=== PATIENT | female | born 1995 | race Caucasian/White ===

== ENCOUNTER → 2021-01-26 | Outpatient (CLI) | payer SELFPAY ==
--- NOTE | 2021-01-26 18:54 | Diagnostic Imaging Report ---
EXAMINATION: Left fingers 2 or more views HISTORY: Trauma COMPARISON: None available. FINDINGS: Alignment is normal. No fracture is seen. Joint spaces are normal. IMPRESSION: 1. No fracture. Dictated by: Dictated on workstation # [id number]
== END ==
LOC: RAD 18:10
PROVIDERS: ATTEND Nurse Practitioner Family
DX: S69.91XA Unspecified injury of right wrist, hand and finger(s), initial encounter (principal); X58.XXXA Exposure to other specified factors, initial encounter
CPT/HCPCS: 73140

== ENCOUNTER 2022-01-25 21:00 | Emergency (ER) | payer MEDICAID ==
[~2022-01-25] VITALS: Ht 170.2 cm; Wt 108.9 kg
[2022-01-25] MEDS ORDERED: ONDANSETRON 4 MG (ZOFRAN) ORAL DISSOLVE TAB PO ONE (22:00)
[2022-01-25] MEDS ORDERED: FLUC150T PO (22:02)
[2022-01-25] MEDS ORDERED: ONDA8TAB13 PO (22:02)
[2022-01-25] MEDS ORDERED: AMOX1TAB12 PO (22:02)
--- NOTE | 2022-01-25 22:02 | ED General ---
General Chief Complaint: COVID19 Suspect/Confirmed Stated Complaint: BODY ACHES,NAUSEA, Nursing Triage Note: PT AMBULATORY TO ROOM. PT STATES FOR 3 DAYS SHE HAS HAD NAUSEA AND BODY ACHES THAT WORSENED TODAY. PT STATES SHE HAD COVID IN JUNE AND SHE FEELS THE SAME. PT STATES SHE WAS ALSO EXPOSED TO SOMEONE WHO HAD COVID THE DAY BEFORE HER SYMPTOMS STARTED. Source of Information: Patient Exam Limitations: No Limitations (GEORGE HENNING APRN) History of Present Illness Date Seen by Provider: Jan 25, 2022 Time Seen by Provider: 21:59 Initial Comments To ER with a 3-day history of nausea body aches sore throat and headache. No fevers. She had COVID in June and this feels the same. Timing/Duration: 2-3 Days Severity: Moderate Associated Systoms: Headaches, Nausea/Vomiting (GEORGE HENNING APRN) Allergies and Home Medications Allergies Coded Allergies: No Known Drug Allergies (Unverified , 01/25/22) Patient Home Medication List Home Medication List Reviewed: Yes (GEORGE HENNING APRN) Amoxicillin/Potassium Clav (Amox Tr-K Clv 875-125 mg Tab) 875 Mg-125 Mg Tablet, 1 EACH PO BID Prescribed by: GEORGE HENNING on 01/25/222201 Fluconazole (Diflucan) 150 Mg Tablet, 150 MG PO DAILY Prescribed by: GEORGE HENNING on 01/25/222201 Ondansetron (Ondansetron Odt) 8 Mg Tab.rapdis, 8 MG PO Q6H PRN for NAUSEA/VOMITING Prescribed by: GEORGE HENNING on 01/25/222201 Review of Systems Review of Systems Constitutional: see HPI, weakness EENTM: see HPI Respiratory: no symptoms reported Cardiovascular: no symptoms reported Genitourinary: no symptoms reported Musculoskeletal: no symptoms reported Skin: no symptoms reported Psychiatric/Neurological: See HPI, Headache Hematologic/Lymphatic: No Symptoms Reported (GEORGE HENNING APRN) Physical Exam Vital Signs Vital Signs - First Documented 01/25/22 21:15 Temp 37.7 Pulse 84 Resp 20 B/P (MAP) 133/90 (104) Pulse Ox 99 (JEAN-CLAUDE GONZALEZ MD) Vital Signs Capillary Refill : (GEORGE HENNING APRN) Height, Weight, BMI Height: '" Weight: lbs. oz. kg; 37.00 BMI Method: General Appearance: No Apparent Distress, WD/WN, Other (Well-appearing alert and oriented GCS 15 very pleasant vital stable) Eyes: Bilateral Eye Normal Inspection, Bilateral Eye PERRL HEENT: PERRL/EOMI, TMs Normal, Other (Right tympanic membrane slightly erythematous by comparison to the left no bulging) Neck: Full Range of Motion, Normal Inspection Respiratory: No Accessory Muscle Use, No Respiratory Distress Gastrointestinal: Normal Bowel Sounds, Non Tender, Soft Neurologic/Psychiatric: Alert, Oriented x3 Skin: Normal Color, Warm/Dry (GEORGE HENNING APRN) Progress/Results/Core Measures Suspected Sepsis SIRS Temperature: Pulse: 84 Respiratory Rate: 20 Laboratory Tests 01/25/22 22:06: White Blood Count 10.3 Blood Pressure 133 /90 Mean: 104 Laboratory Tests 01/25/22 22:06: Creatinine 0.83, Platelet Count 353 (GEORGE HENNING APRN) Results/Orders Lab Results Laboratory Tests Test 01/25/22 21:21 01/25/22 22:03 01/25/22 22:06 Range/Units Influenza Type A (RT-PCR) Not Detected Not Detecte Influenza Type B (RT-PCR) Not Detected Not Detecte SARS-CoV-2 RNA (RT-PCR) Not Detected Not Detecte Urine Color YELLOW Urine Clarity CLEAR Urine pH 5.5 5-9 Urine Specific [place] 1.025 H 1.016-1.022 Urine Protein NEGATIVE NEGATIVE Urine Glucose (UA) NEGATIVE NEGATIVE Urine Ketones NEGATIVE NEGATIVE Urine Nitrite NEGATIVE NEGATIVE Urine Bilirubin NEGATIVE NEGATIVE Urine Urobilinogen 0.2 < = 1.0 MG/DL Urine Leukocyte Esterase NEGATIVE NEGATIVE Urine RBC (Auto) NEGATIVE NEGATIVE Urine RBC NONE /HPF Urine WBC 0-2 /HPF Urine Squamous Epithelial Cells 0-2 /HPF Urine Renal Epithelial Cells NONE /HPF Urine Crystals NONE /LPF Urine Bacteria TRACE /HPF Urine Casts NONE /LPF Urine Mucus MODERATE H /LPF Urine Culture Indicated NO White Blood Count 10.3 4.3-11.0 10^3/uL Red Blood Count 4.81 3.80-5.11 10^6/uL Hemoglobin 13.9 11.5-16.0 g/dL Hematocrit 41 35-52 % Mean Corpuscular Volume 86 80-99 fL Mean Corpuscular Hemoglobin 29 25-34 pg Mean Corpuscular Hemoglobin Concent 34 32-36 g/dL Red Cell Distribution Width 12.3 10.0-14.5 % Platelet Count 353 130-400 10^3/uL Mean Platelet Volume 9.9 9.0-12.2 fL Immature Granulocyte % (Auto) 0 % Neutrophils (%) (Auto) 54 42-75 % Lymphocytes (%) (Auto) 37 12-44 % Monocytes (%) (Auto) 4 0-12 % Eosinophils (%) (Auto) 4 0-10 % Basophils (%) (Auto) 1 0-10 % Neutrophils # (Auto) 5.6 1.8-7.8 10^3/uL Lymphocytes # (Auto) 3.8 1.0-4.0 10^3/uL Monocytes # (Auto) 0.4 0.0-1.0 10^3/uL Eosinophils # (Auto) 0.4 H 0.0-0.3 10^3/uL Basophils # (Auto) 0.1 0.0-0.1 10^3/uL Immature Granulocyte # (Auto) 0.0 0.0-0.1 10^3/uL Sodium Level 136 135-145 MMOL/L Potassium Level 4.0 3.6-5.0 MMOL/L Chloride Level 103 98-107 MMOL/L Carbon Dioxide Level 20 L 21-32 MMOL/L Anion Gap 13 5-14 MMOL/L Blood Urea Nitrogen 9 7-18 MG/DL Creatinine 0.83 0.60-1.30 MG/DL Estimat Glomerular Filtration Rate 100 BUN/Creatinine Ratio 11 Glucose Level 96 70-105 MG/DL Calcium Level 9.7 8.5-10.1 MG/DL Serum Test, Qualitative NEGATIVE NEGATIVE (JEAN-CLAUDE GONZALEZ MD) My Orders Orders - JEAN-CLAUDE GONZALEZ MD Covid 19 Inhouse Test (01/25/22 21:06) Influenza A And B By Pcr (01/25/22 21:06) (JEAN-CLAUDE GONZALEZ MD) Medications Given in ED Current Medications Medications Dose Ordered Sig/Gail Route Start Time Stop Time Status Last Admin Dose Admin Ondansetron HCl 8 mg ONCE ONCE PO 01/25/22 22:00 01/25/22 22:01 DC 01/25/22 22:17 8 MG (JEAN-CLAUDE GONZALEZ MD) Vital Signs/I&O 01/25/22 01/25/22 21:15 22:43 Temp 37.7 Pulse 84 73 Resp 20 B/P (MAP) 133/90 (104) 128/83 Pulse Ox 99 97 (JEAN-CLAUDE GONZALEZ MD) Vital Signs/I&O Capillary Refill : (GEORGE HENNING APRN) Blood Pressure Mean: 104 Departure Impression Primary Impression: Viral syndrome Additional Impression: Right otitis media Disposition: HOME, SELF-CARE Condition: Stable Departure-Patient Inst. Decision time for Depature: 22:00 (GEORGE HENNING APRN) Ref[place] [facility] [place] Primary Care Physician Patient Instructions: Viral Syndrome (DC) Add. Discharge Instructions: 1. Take the antibiotics for the right ear infection if the symptoms do not improve on their own in about 2 days. If they do improve then you do not need the antibiotics. Return to ER for any concerns. Follow-up with your doctor next week. Tylenol and ibuprofen for fever control or body aches. Nausea medication as needed. All discharge instructions reviewed with patient and/or family. Voiced understanding. Scripts Fluconazole (Diflucan) 150 Mg Tablet 150 MG PO DAILY, #2 TAB Prov: GEORGE HENNING APRN 01/25/22 Amoxicillin/Potassium Clav (Amox Tr-K Clv 875-125 mg Tab) 875 Mg-125 Mg Tablet 1 EACH PO BID, #10 TAB Prov: GEORGE HENNING APRN 01/25/22 Ondansetron (Ondansetron Odt) 8 Mg Tab.rapdis 8 MG PO Q6H PRN for NAUSEA/VOMITING, #10 TAB Prov: GEORGE HENNING APRN 01/25/22 Work/School Note: Work Release Form Date Seen in the Emergency Department: Jan 25, 2022 Return to Work: Jan 28, 2022 ATTENDING PHYSICIAN NOTE: I was physically present as attending physician in the emergency department during the care of this patient, but I was not directly involved in the decision making or delivery of care for this patient. (JEAN-CLAUDE GONZALEZ MD) GEORGE HENNING APRN Jan 25, 2022 22:02 JEAN-CLAUDE GONZALEZ MD Jan 26, 2022 04:02
[2022-01-25 22:13] LABS: BASOPHILS # (AUTO) 0.1 10^3/uL (0.0-0.1); BASOPHILS % (AUTO) 1 % (0-10); EOSINOPHILS # (AUTO) 0.4 10^3/uL (0.0-0.3); EOSINOPHILS % (AUTO) 4 % (0-10); HEMATOCRIT 41 % (35-52); HEMOGLOBIN 13.9 g/dL (11.5-16.0); LYMPHOCYTES # (AUTO) 3.8 10^3/uL (1.0-4.0); LYMPHOCYTES % (AUTO) 37 % (12-44); MEAN CORPUSCULAR HEMOGLOBIN 29 pg (25-34); MEAN CORPUSCULAR HGB CONC 34 g/dL (32-36); MEAN CORPUSCULAR VOLUME 86 fL (80-99); MEAN PLATELET VOLUME 9.9 fL (9.0-12.2); MONOCYTES # (AUTO) 0.4 10^3/uL (0.0-1.0); MONOCYTES % (AUTO) 4 % (0-12); NEUTROPHILS # (AUTO) 5.6 10^3/uL (1.8-7.8); NEUTROPHILS % (AUTO) 54 % (42-75); PLATELET COUNT 353 10^3/uL (130-400); WHITE BLOOD COUNT 10.3 10^3/uL (4.3-11.0)
[2022-01-25 22:14] LABS: BILIRUBIN,URINE NEGATIVE (NEGATIVE); CLARITY,URINE CLEAR; COLOR,URINE YELLOW; GLUCOSE, URINE (UA) NEGATIVE (NEGATIVE); KETONES,URINE NEGATIVE (NEGATIVE); LEUKOCYTE ESTERASE ,URINE NEGATIVE (NEGATIVE); NITRITE,URINE NEGATIVE (NEGATIVE); PH,URINE 5.5 (5-9); PROTEIN,URINE NEGATIVE (NEGATIVE)
[2022-01-25 22:23] LABS: BACTERIA,URINE TRACE /HPF; SQUAMOUS EPITHELIAL CELL,UR 0-2 /HPF; WBC,URINE 0-2 /HPF
[2022-01-25 22:25] LABS: CALCIUM 9.7 MG/DL (8.5-10.1)
[2022-01-25 22:29] LABS: CREATININE SERUM 0.83 MG/DL (0.60-1.30)
[2022-01-25 22:43] VITALS: BP 128/83
== END 2022-01-25 22:43 | disposition home or self-care (01) ==
LOC: EDUNIT# 21:00 → ER 21:04
DX: B34.9 Viral infection, unspecified (principal); H66.91 Otitis media, unspecified, right ear; Z86.16 Personal history of COVID-19; Z28.310 Unvaccinated for COVID-19; Z20.822 Contact with and (suspected) exposure to COVID-19
CPT/HCPCS: 36415; 80048; 81000; 84703; 85025; 87636

== ENCOUNTER 2022-02-14 23:54 | Emergency (ER) | payer MEDICAID ==
[~2022-02-14] VITALS: Ht 170.1 cm; Wt 108.7 kg
[~2022-02-14 23:54] MED LIST: AMOX1TAB12 PO; FLUC150T PO; ONDA8TAB13 PO
--- NOTE | 2022-02-15 00:50 | ED Headache ---
General Chief Complaint: Head/Cervical Problems Stated Complaint: MIGRAINE Nursing Triage Note: PT ARRIVAL TO ER WITH COMPLAINT OF MIGRAINE X2 DAYS. PATIENT SEEN AT [facility] YESTERDAY AND TREATED FOR THIS. Source: patient Exam Limitations: no limitations History of Present Illness Date Seen by Provider: Feb 15, 2022 Time Seen by Provider: 00:28 Initial Comments Patient to the ER by private conveyance from home with chief complaint of migraine headache. She has a history of migraine headaches. She is not having any nausea fevers chills productive cough, shortness of air, chest pain, diarrhea, constipation or sick contacts. She went to the clinic yesterday and was given a shot of medicine which made her drowsy. Her headache went away but when she got up this morning her headache was back. She did take some medicines for mood stabilizer and depression. She is followed by Karen France at [facility] for primary care. She did take Tylenol and Motrin without significant relief of symptoms earlier tonight. Allergies and Home Medications Allergies Coded Allergies: No Known Drug Allergies (Unverified , 01/25/22) Patient Home Medication List Home Medication List Reviewed: Yes Amoxicillin/Potassium Clav (Amox Tr-K Clv 875-125 mg Tab) 875 Mg-125 Mg Tablet, 1 EACH PO BID Prescribed by: GEORGE HENNING on 01/25/222201 Fluconazole (Diflucan) 150 Mg Tablet, 150 MG PO DAILY Prescribed by: GEORGE HENNING on 01/25/222201 Ondansetron (Ondansetron Odt) 8 Mg Tab.rapdis, 8 MG PO Q6H PRN for NAUSEA/VOMITING Prescribed by: GEORGE HENNING on 01/25/222201 Review of Systems Review of Systems Constitutional: No chills, No diaphoresis Eyes: Denies Blindness, Denies Blurred Vision Ears, Nose, Mouth, Throat: denies ear pain, denies ear discharge Respiratory: No cough, No short of breath Cardiovascular: No chest pain, No edema Gastrointestinal: No abdominal pain, No nausea Genitourinary: No discharge, No dysuria Musculoskeletal: No back pain, No joint pain All Other Systems Reviewed Negative Unless Noted: Yes Past Kmtqddb-Dwmhuw-Xdzgng Hx Patient Social History Tobacco Use?: No Use of E-Cig and/or Vaping dev: No Substance use?: No Alcohol Use?: No Pt feels they are or have been: No Immunizations Up To Date Influenza Vaccine Up-to-Date: No; Not Current Physical Exam Vital Signs Vital Signs - First Documented 02/15/22 00:16 Temp 36.2 Pulse 74 Resp 18 B/P (MAP) 144/94 (111) Pulse Ox 99 O2 Delivery Room Air Capillary Refill : Less Than 3 Seconds Height, Weight, BMI Height: '" Weight: lbs. oz. kg; 37.00 BMI Method: General Appearance: WD/WN, mild distress HEENT: PERRL/EOMI, pharynx normal Neck: full range of motion, supple, normal inspection Cardiovascular: normal peripheral pulses, regular rate, rhythm Respiratory: lungs clear, normal breath sounds, no respiratory distress, no accessory muscle use Gastrointestinal: non tender, soft Extremities: non-tender, normal inspection, normal capillary refill Psychiatric: alert, oriented x 3 Crainal Nerves: normal hearing, normal speech Progress/Results/Core Measures Results/Orders My Orders Orders - ISAIAH CHEN Acetaminophen Tablet (Tylenol Tablet) (02/15/22 01:00) Promethazine Injection (Phenergan Injec (02/15/22 01:00) Diphenhydramine Tablet (Benadryl Tablet) (02/15/22 01:00) Ketorolac Injection (Toradol Injection) (02/15/22 01:00) Methylprednisolone Sod Succ (Solu-Medrol (02/15/22 01:00) Medications Given in ED Current Medications Medications Dose Ordered Sig/Gail Route Start Time Stop Time Status Last Admin Dose Admin Acetaminophen 1,000 mg ONCE ONCE PO 02/15/22 01:00 02/15/22 01:01 DC 02/15/22 00:57 1,000 MG Diphenhydramine HCl 50 mg ONCE ONCE PO 02/15/22 01:00 02/15/22 01:01 DC 02/15/22 00:57 50 MG Ketorolac Tromethamine 60 mg ONCE ONCE IM 02/15/22 01:00 02/15/22 01:01 DC 02/15/22 00:59 60 MG Methylprednisolone Sodium Succinate 125 mg ONCE ONCE IM 02/15/22 01:00 02/15/22 01:01 DC 02/15/22 00:59 125 MG Promethazine HCl 25 mg ONCE ONCE IM 02/15/22 01:00 02/15/22 01:01 DC 02/15/22 00:58 25 MG Vital Signs/I&O 02/15/22 02/15/22 00:16 01:07 Temp 36.2 Pulse 74 79 Resp 18 18 B/P (MAP) 144/94 (111) 143/98 Pulse Ox 99 99 O2 Delivery Room Air Room Air Blood Pressure Mean: 111 Progress Progress Note : Time: 00:47 Progress Note We will give her a cocktail of Phenergan PO, Toradol IM, Solu-Medrol IM to prevent rebound headache and p.o. Benadryl and Tylenol. Patient was offered a test which she declined stating she is not sexually active and has no chance of being . She states she is willing to assume the risk. Departure Impression Primary Impression: Migraine Qualified Codes: G43.009 - Migraine without aura, not intractable, without status migrainosus Disposition: HOME, SELF-CARE Condition: Stable Departure-Patient Inst. Decision time for Depature: 00:49 Referrals: [facility] [place]) Primary Care Physician KAREN FRANCE APRN (Family) Primary Care Physician Patient Instructions: Migraines (DC) Add. Discharge Instructions: Tylenol 1000 mg every 8 hours needed for pain. Ibuprofen 800 mg every 8 hours needed for pain. Get some sleep. Follow-up with your primary care provider to discuss your migraines and strategies to prevent and/or treat them at home. All discharge instructions reviewed with patient and/or family. Voiced understanding. Work/School Note: Work Release Form Date Seen in the Emergency Department: Feb 15, 2022 Return to Work: Feb 16, 2022 Restrictions: No Restrictions ISAIAH CHEN Feb 15, 2022 00:50
[2022-02-15] MEDS ORDERED: KETOROLAC 60 MG/2 ML VIAL IM ONE (01:00)
[2022-02-15] MEDS ORDERED: ACETAMINOPHEN 500 MG TAB (TYLENOL) PO ONE (01:00)
[2022-02-15] MEDS ORDERED: PROMETHAZINE INJ 25 MG/ML (PHENERGAN) AMP IM ONE (01:00)
[2022-02-15] MEDS ORDERED: methylPREDNISolone 125 MG (Solu-MEDROL) VIAL IM ONE (01:00)
[2022-02-15] MEDS ORDERED: diphenhydrAMINE 25 MG TAB (BENADRYL) PO ONE (01:00)
[2022-02-15 01:07] VITALS: BP 143/98
== END 2022-02-15 01:21 | disposition home or self-care (01) ==
LOC: EDUNIT# 23:54 → ER 23:57
DX: G43.909 Migraine, unspecified, not intractable, without status migrainosus (principal); Z28.310 Unvaccinated for COVID-19
CPT/HCPCS: 99284

== ENCOUNTER 2022-03-02 21:24 | Emergency (ER) | payer MEDICAID ==
--- NOTE | 2022-03-02 21:52 | ED General ---
General Chief Complaint: Chest Wall Stated Complaint: CHEST TIGHTNESS Nursing Triage Note: ARRIVAL TO ER VIA PRIVATE VEHICLE WITH COMPLAINT OF CHEST TIGHTNESS X1 HOUR. RATES PAIN AT 7/10. DENIES OTHER SYMPTOMS. WAS SITTING WATCHING TV WHEN STARTED. PAIN IS INTERMITTENT. Source of Information: Patient Exam Limitations: No Limitations History of Present Illness Date Seen by Provider: Mar 02, 2022 Allergies and Home Medications Allergies Coded Allergies: No Known Drug Allergies (Unverified , 01/25/22) Patient Home Medication List Amoxicillin/Potassium Clav (Amox Tr-K Clv 875-125 mg Tab) 875 Mg-125 Mg Tablet, 1 EACH PO BID Prescribed by: GEORGE HENNING on 01/25/222201 Fluconazole (Diflucan) 150 Mg Tablet, 150 MG PO DAILY Prescribed by: GEORGE HENNING on 01/25/222201 Ondansetron (Ondansetron Odt) 8 Mg Tab.rapdis, 8 MG PO Q6H PRN for NAUSEA /VOMITING Prescribed by: GEORGE HENNING on 01/25/222201 Past Qwnukgz-Hnfmoi-Gercrc Hx Patient Social History Tobacco Use?: No Use of E-Cig and/or Vaping dev: No Substance use?: No Alcohol Use?: No Pt feels they are or have been: No Immunizations Up To Date Influenza Vaccine Up-to-Date: No; Not Current Physical Exam Vital Signs Vital Signs - First Documented 03/02/22 21:28 Pulse 104 Resp 18 B/P (MAP) 137/97 (110) Pulse Ox 99 O2 Delivery Room Air Capillary Refill : Less Than 3 Seconds Height, Weight, BMI Height: '" Weight: lbs. oz. kg; 37.00 BMI Method: Progress/Results/Core Measures Suspected Sepsis SIRS Temperature: Pulse: 104 Respiratory Rate: 18 Laboratory Tests 03/02/22 21:40: White Blood Count 13.5H Blood Pressure 137 /97 Mean: 110 Laboratory Tests 03/02/22 21:40: Creatinine 0.84, Platelet Count 382, Total Bilirubin 0.3 Results/Orders Lab Results Laboratory Tests Test 03/02/22 21:40 03/02/22 21:42 03/02/22 21:50 03/02/22 21:56 Range/Units White Blood Count 13.5 H 4.3-11.0 10^3/uL Red Blood Count 4.86 3.80-5.11 10^6/uL Hemoglobin 14.3 11.5-16.0 g/dL Hematocrit 42 35-52 % Mean Corpuscular Volume 86 80-99 fL Mean Corpuscular Hemoglobin 29 25-34 pg Mean Corpuscular Hemoglobin Concent 34 32-36 g/dL Red Cell Distribution Width 12.2 10.0-14.5 % Platelet Count 382 130-400 10^3/uL Mean Platelet Volume 10.3 9.0-12.2 fL Immature Granulocyte % (Auto) 0 % Neutrophils (%) (Auto) 66 42-75 % Lymphocytes (%) (Auto) 24 12-44 % Monocytes (%) (Auto) 5 0-12 % Eosinophils (%) (Auto) 4 0-10 % Basophils (%) (Auto) 1 0-10 % Neutrophils # (Auto) 8.9 H 1.8-7.8 10^3/uL Lymphocytes # (Auto) 3.2 1.0-4.0 10^3/uL Monocytes # (Auto) 0.7 0.0-1.0 10^3/uL Eosinophils # (Auto) 0.6 H 0.0-0.3 10^3/uL Basophils # (Auto) 0.1 0.0-0.1 10^3/uL Immature Granulocyte # (Auto) 0.0 0.0-0.1 10^3/uL Sodium Level 138 135-145 MMOL/L Potassium Level 4.2 3.6-5.0 MMOL/L Chloride Level 103 98-107 MMOL/L Carbon Dioxide Level 21 21-32 MMOL/L Anion Gap 14 5-14 MMOL/L Blood Urea Nitrogen 10 7-18 MG/DL Creatinine 0.84 0.60-1.30 MG/DL Estimat Glomerular Filtration Rate 98 BUN/Creatinine Ratio 12 Glucose Level 101 70-105 MG/DL Calcium Level 9.8 8.5-10.1 MG/DL Corrected Calcium 9.5 8.5-10.1 MG/DL Total Bilirubin 0.3 0.1-1.0 MG/DL Aspartate Amino Transf (AST/SGOT) 36 H 5-34 U/L Alanine Aminotransferase (ALT/SGPT) 45 0-55 U/L Alkaline Phosphatase 75 40-136 U/L Troponin I < 0.028 <0.028 NG/ML Total Protein 8.5 H 6.4-8.2 GM/DL Albumin 4.4 3.2-4.5 GM/DL D-Dimer < 0.27 0.00-0.49 UG/ML Influenza Type A (RT-PCR) Not Detected Not Detecte Influenza Type B (RT-PCR) Not Detected Not Detecte SARS-CoV-2 RNA (RT-PCR) Not Detected Not Detecte Urine Color YELLOW Urine Clarity CLEAR Urine pH 6.5 5-9 Urine Specific [place] 1.025 H 1.016-1.022 Urine Protein NEGATIVE NEGATIVE Urine Glucose (UA) NEGATIVE NEGATIVE Urine Ketones NEGATIVE NEGATIVE Urine Nitrite NEGATIVE NEGATIVE Urine Bilirubin NEGATIVE NEGATIVE Urine Urobilinogen 1.0 < = 1.0 MG/DL Urine Leukocyte Esterase 1+ H NEGATIVE Urine RBC (Auto) NEGATIVE NEGATIVE Urine RBC NONE /HPF Urine WBC 2-5 /HPF Urine Squamous Epithelial Cells 0-2 /HPF Urine Renal Epithelial Cells NONE /HPF Urine Crystals NONE /LPF Urine Bacteria FEW H /HPF Urine Casts NONE /LPF Urine Mucus SMALL H /LPF Urine Culture Indicated YES My Orders Orders - MARY GE APRN Urinalysis (03/02/22 21:35) Urine Bedside (03/02/22 21:35) Cbc With Automated Diff (03/02/22 21:42) Comprehensive Metabolic Panel (03/02/22 21:42) Fibrin Degradation Products (03/02/22 21:42) Troponin I [place] (03/02/22 21:42) Chest 1 View, Ap/Pa Only (03/02/22 21:42) Covid 19 Inhouse Test (03/02/22 21:42) Influenza A And B By Pcr (03/02/22 21:42) Ed Iv/Invasive Line Start (03/02/22 21:59) Urine Culture (03/02/22 21:56) Vital Signs/I&O 03/02/22 21:28 Pulse 104 Resp 18 B/P (MAP) 137/97 (110) Pulse Ox 99 O2 Delivery Room Air Capillary Refill : Less Than 3 Seconds Blood Pressure Mean: 110 Departure Impression Primary Impression: Anxiety Disposition: 01 HOME, SELF-CARE Condition: Improved Departure-Patient Inst. Decision time for Depature: 22:48 Referrals: [facility] (PCP) Primary Care Physician KIM FRANCE APRN (Family) Primary Care Physician Patient Instructions: Anxiety, Adult (DC) Add. Discharge Instructions: Plan: 1. Follow up with your doctor for any persistent symptoms. 2. Return to ER for any new, concerning, or worsening symptoms. All discharge instructions reviewed with patient and/or family. Voiced understanding. MARY GE HAT BINDER Mar 02, 2022 21:51
[2022-03-02 21:53] LABS: BASOPHILS # (AUTO) 0.1 10^3/uL (0.0-0.1); BASOPHILS % (AUTO) 1 % (0-10); EOSINOPHILS # (AUTO) 0.6 10^3/uL (0.0-0.3); EOSINOPHILS % (AUTO) 4 % (0-10); HEMATOCRIT 42 % (35-52); HEMOGLOBIN 14.3 g/dL (11.5-16.0); LYMPHOCYTES # (AUTO) 3.2 10^3/uL (1.0-4.0); LYMPHOCYTES % (AUTO) 24 % (12-44); MEAN CORPUSCULAR HEMOGLOBIN 29 pg (25-34); MEAN CORPUSCULAR HGB CONC 34 g/dL (32-36); MEAN CORPUSCULAR VOLUME 86 fL (80-99); MEAN PLATELET VOLUME 10.3 fL (9.0-12.2); MONOCYTES # (AUTO) 0.7 10^3/uL (0.0-1.0); MONOCYTES % (AUTO) 5 % (0-12); NEUTROPHILS # (AUTO) 8.9 10^3/uL (1.8-7.8); NEUTROPHILS % (AUTO) 66 % (42-75); PLATELET COUNT 382 10^3/uL (130-400); WHITE BLOOD COUNT 13.5 10^3/uL (4.3-11.0)
[2022-03-02 22:02] LABS: BILIRUBIN,URINE NEGATIVE (NEGATIVE); CLARITY,URINE CLEAR; COLOR,URINE YELLOW; GLUCOSE, URINE (UA) NEGATIVE (NEGATIVE); KETONES,URINE NEGATIVE (NEGATIVE); LEUKOCYTE ESTERASE ,URINE 1+ (NEGATIVE); NITRITE,URINE NEGATIVE (NEGATIVE); PH,URINE 6.5 (5-9); PROTEIN,URINE NEGATIVE (NEGATIVE)
[2022-03-02 22:04] LABS: BACTERIA,URINE FEW /HPF; SQUAMOUS EPITHELIAL CELL,UR 0-2 /HPF
--- NOTE | 2022-03-02 22:04 | Diagnostic Imaging Report ---
PATIENT HISTORY: SOA. TECHNIQUE: Single frontal view of the chest. COMPARISON: None FINDINGS: The lung volumes are normal. No focal consolidation is seen. No large pleural effusion or pneumothorax is seen. The cardiomediastinal silhouette is normal in size and contour. No acute osseous abnormality is seen. IMPRESSION: No acute pulmonary abnormality seen. Dictated by: Dictated on workstation # [id number]
[2022-03-02 22:21] LABS: ALANINE AMINOTRANSFERASE 45 U/L (0-55); ALBUMIN 4.4 GM/DL (3.2-4.5); ALKALINE PHOSPHATASE 75 U/L (40-136); BILIRUBIN,TOTAL 0.3 MG/DL (0.1-1.0); BUN/CREATININE RATIO 12; CALCIUM 9.8 MG/DL (8.5-10.1); CARBON DIOXIDE 21 MMOL/L (21-32); CHLORIDE 103 MMOL/L (98-107); CREATININE SERUM 0.84 MG/DL (0.60-1.30); GFR ESTIMATED 98; GLUCOSE 101 MG/DL (70-105); POTASSIUM 4.2 MMOL/L (3.6-5.0); SODIUM 138 MMOL/L (135-145); TOTAL PROTEIN 8.5 GM/DL (6.4-8.2)
[2022-03-02 23:15] VITALS: BP 114/76
== END 2022-03-02 23:15 | disposition home or self-care (01) ==
LOC: EDUNIT# 21:24 → ER 21:25
DX: F41.9 Anxiety disorder, unspecified (principal); Z20.822 Contact with and (suspected) exposure to COVID-19; Z28.310 Unvaccinated for COVID-19
CPT/HCPCS: 36415; 71045; 80053; 81000; 84484; 84703; 85025; 85379; 87088; 87636; 93005

== ENCOUNTER 2022-05-13 07:50 | Emergency (ER) | payer MEDICAID ==
[~2022-05-13] VITALS: Ht 170 cm; Wt 108.8 kg
--- NOTE | 2022-05-13 08:25 | ED Respiratory ---
General Chief Complaint: Cough/Cold/Flu Symptoms Stated Complaint: CONGESTION | FEVER | COUGH History of Present Illness Date Seen by Provider: May 13, 2022 Time Seen by Provider: 07:58 Initial Comments 27 yo female here for sore throat since yesterday. Pt reports associated nonproductive cough, congestion in chest, and N/V/D. Pt states she has about 10 episodes of nonbloody diarrhea and vomiting. Woke up this morning with a temperature of 100.3. She was seen at walk-in clinic yesterday and tested negati ve for strep, RSV, covid, and flu. Pt is not vaccinated against flu and covid. She has not taken any medication for her sx. Denies any SOB, sinus pressure, AVALOS. No other complaints (ZOE IBANEZ) Allergies and Home Medications Allergies Coded Allergies: No Known Drug Allergies (Unverified , 01/25/22) Patient Home Medication List Home Medication List Reviewed: Yes (ZOE IBANEZ) Amoxicillin/Potassium Clav (Amox Tr-K Clv 875-125 mg Tab) 875 Mg-125 Mg Tablet, 1 EACH PO BID Prescribed by: GEORGE HENNING on 01/25/222201 Fluconazole (Diflucan) 150 Mg Tablet, 150 MG PO DAILY Prescribed by: GEORGE HENNING on 01/25/222201 Ondansetron (Ondansetron Odt) 8 Mg Tab.rapdis, 8 MG PO Q6H PRN for NAUSEA/VOMIT ING Prescribed by: GEORGE HENNING on 01/25/222201 Ondansetron (Ondansetron Odt) 4 Mg Tab.rapdis, 4 MG SL Q4H PRN for NAUSEA/VOMITING Prescribed by: JEAN-CLAUDE ROSENBERG on 05/13/221120 Promethazine HCl (Promethazine Suppository) 25 Mg Supp.rect, 25 MG RC Q8H PRN for NAUSEA/VOMITING-2ND LINE Prescribed by: JEAN-CLAUDE ROSENBERG on 05/13/221120 Review of Systems Review of Systems Constitutional: chills; No diaphoresis; fever; No malaise, No weakness EENTM: No ear discharge, No hearing loss, No ear pain, No nose congestion Respiratory: cough; No short of breath, No stridor, No wheezing Cardiovascular: No chest pain, No palpitations Gastrointestinal: No abdominal pain; diarrhea, nausea, vomiting Genitourinary: no symptoms reported Musculoskeletal: no symptoms reported Skin: no symptoms reported Psychiatric/Neurological: No Symptoms Reported Hematologic/Lymphatic: No Symptoms Reported Immunological/Allergic: no symptoms reported (ZOE IBANEZ) Past Iaewmjs-Podtth-Yqbkqs Hx Patient Social History Tobacco Use?: No Substance use?: No Alcohol Use?: No Pt feels they are or have been: No (ZOE IBANEZ) Past Medical History Surgery/Hospitalization HX: pmh: depression (ZOE IBANEZ) Family Medical History No Pertinent Family Hx (ZOE IBANEZ) Physical Exam Vital Signs - First Documented 05/13/22 08:02 Temp 38.7 Pulse 113 Resp 16 B/P (MAP) 139/94 (109) Pulse Ox 98 O2 Delivery Room Air (JEAN-CLAUDE LAMAR MD) Capillary Refill : (ZOE IBANEZ) Height: '" Weight: lbs. oz. kg; 37.00 BMI Method: HEENT: PERRL/EOMI, normal ENT inspection, TMs normal, pharynx normal Neck: non-tender, full range of motion, supple, normal inspection Respiratory: chest non-tender, lungs clear, normal breath sounds, no respiratory distress, no accessory muscle use Cardiovascular: regular rate, rhythm, no edema, no gallop, no JVD, no murmur Gastrointestinal: normal bowel sounds, non tender, soft, no organomegaly, no pulsatile mass Extremities: normal range of motion, non-tender, normal inspection, no pedal edema, no calf tenderness Neurologic/Psychiatric: vulnerability researcher II-XII nml as tested, no motor/sensory deficits, a lert, normal mood/affect, oriented x 3 Skin: normal color, warm/dry Lymphatic: no adenopathy (ZOE IBANEZ) General Appearance: WD/WN, no apparent distress, obese (JEAN-CLAUDE LAMAR MD) Progress/Results/Core Measures Suspected Sepsis SIRS Temperature: Pulse: Respiratory Rate: Blood Pressure / Mean: (ZOE IBANEZ) Results/Orders Lab Results Laboratory Tests Test 05/13/22 08:00 05/13/22 10:22 Range/Units Influenza Type A (RT-PCR) Not Detected Not Detecte Influenza Type B (RT-PCR) Not Detected Not Detecte SARS-CoV-2 RNA (RT-PCR) Not Detected Not Detecte White Blood Count 8.1 4.3-11.0 10^3/uL Red Blood Count 4.53 3.80-5.11 10^6/uL Hemoglobin 13.0 11.5-16.0 g/dL Hematocrit 39 35-52 % Mean Corpuscular Volume 85 80-99 fL Mean Corpuscular Hemoglobin 29 25-34 pg Mean Corpuscular Hemoglobin Concent 34 32-36 g/dL Red Cell Distribution Width 12.1 10.0-14.5 % Platelet Count 299 130-400 10^3/uL Mean Platelet Volume 9.9 9.0-12.2 fL Immature Granulocyte % (Auto) 0 % Neutrophils (%) (Auto) 78 H 42-75 % Lymphocytes (%) (Auto) 14 12-44 % Monocytes (%) (Auto) 6 0-12 % Eosinophils (%) (Auto) 1 0-10 % Basophils (%) (Auto) 1 0-10 % Neutrophils # (Auto) 6.4 1.8-7.8 10^3/uL Lymphocytes # (Auto) 1.1 1.0-4.0 10^3/uL Monocytes # (Auto) 0.5 0.0-1.0 10^3/uL Eosinophils # (Auto) 0.1 0.0-0.3 10^3/uL Basophils # (Auto) 0.1 0.0-0.1 10^3/uL Immature Granulocyte # (Auto) 0.0 0.0-0.1 10^3/uL Sodium Level 134 L 135-145 MMOL/L Potassium Level 3.4 L 3.6-5.0 MMOL/L Chloride Level 102 98-107 MMOL/L Carbon Dioxide Level 22 21-32 MMOL/L Anion Gap 10 5-14 MMOL/L Blood Urea Nitrogen 7 7-18 MG/DL Creatinine 0.79 0.60-1.30 MG/DL Estimat Glomerular Filtration Rate 105 BUN/Creatinine Ratio 9 Glucose Level 114 H 70-105 MG/DL Calcium Level 9.4 8.5-10.1 MG/DL Magnesium Level 1.7 1.6-2.4 MG/DL Serum Test, Qualitative NEGATIVE NEGATIVE (JEAN-CLAUDE LAMAR MD) My Orders Orders - JEAN-CLAUDE LAMAR MD Covid 19 Inhouse Test (05/13/22 07:54) Influenza A And B By Pcr (05/13/22 07:54) Ondansetron Oral Dissolve Tab (Zofran (05/13/22 08:30) Ibuprofen Tablet (Motrin Tablet) (05/13/22 08:30) Basic Metabolic Panel (05/13/22 10:02) Cbc With Automated Diff (05/13/22 10:02) Hcg,Qualitative Serum (05/13/22 10:02) Magnesium (05/13/22 10:02) Promethazine Injection (Phenergan Injec (05/13/22 10:15) Lactated Ringers (Lr 1000 Ml Iv Solution (05/13/22 10:15) Ed Iv/Invasive Line Start (05/13/22 10:03) (JEAN-CLAUDE LAMAR MD) Medications Given in ED (JEAN-CLAUDE LAMAR MD) Vital Signs/I&O 05/13/22 05/13/22 05/13/22 08:02 08:02 11:30 Temp 38.7 Pulse 113 11 Resp 16 22 B/P (MAP) 139/94 (109) 170/76 Pulse Ox 98 93 O2 Delivery Room Air Room Air (JEAN-CLAUDE LAMAR MD) Vital Signs/I&O Capillary Refill : (ZOE IBANEZ) Progress Note : Time: 08:[address] Lamar saw and examined patient Zofran ordered (ZOE IBANEZ) Progress Note : Progress Note Viral swabs were obtained and were negative. Patient was treated with sublingual Zofran and ibuprofen. She had refractory vomiting after treatment. Options were discussed. She elected to proceed with IV therapy and evaluation. Further work-up was unremarkable. She felt better after IV fluids and Phener nola. See discharge instructions for further discussion. (JEAN-CLAUDE LAMAR MD) ECG Initial ECG Impression Date: May 13, 2022 (ZOE IBANEZ) Departure Impression Primary Impression: Viral syndrome Additional Impression: Nausea & vomiting Qualified Codes: R11.2 - Nausea with vomiting, unspecified Disposition: 01 HOME, SELF-CARE Condition: Improved Departure-Patient Inst. Decision time for Depature: 11:17 (JEAN-CLAUDE LAMAR MD) Referrals: [facility] (PCP) Primary Care Physician KIM FRANCE APRN (Family) Primary Care Physician Patient Instructions: Nausea and Vomiting, Adult, VIRAL SYNDROME Add. Discharge Instructions: Start with a clear liquid diet and drink plenty of clear liquids to stay well- hydrated. When your nausea is controlled, gradually advance your diet with small quantities of bland food as tolerated. You may take Tylenol (acetaminophen) up to 1000 mg every 6 hours as needed for fever and pain. You may also take ibuprofen up to 600 mg every 6 hours as needed for fever or pain. Use the Zofran (ondansetron) as prescribed for nausea or vomiting. Use the Phenergan (promethazine) suppositories as a backup treatment for nausea and vomiting. This medication may make you drowsy, so use with caution. Return to care if you have worsening symptoms despite following these instructions. All discharge instructions reviewed with patient and/or family. Voiced understanding. Scripts Promethazine HCl (Promethazine Suppository) 25 Mg Supp.rect 25 MG RC Q8H PRN for NAUSEA/VOMITING-2ND LINE, #10 SUPP.RECT Prov: JEAN-CLAUDE LAMAR MD 05/13/22 Ondansetron (Ondansetron Odt) 4 Mg Tab.rapdis 4 MG SL Q4H PRN for NAUSEA/VOMITING, #10 TAB Prov: JEAN-CLAUDE LAMAR MD 05/13/22 Medical Student Attestation and Attending Note: I have personally interviewed and examined this patient along with Zoe Ibanez MS3. I have reviewed student documentation including history, physical, and assessments. I agree with the documentation except where otherwise noted. Exam: General: Alert, oriented, no acute distress, well developed HEENT: Normocephalic and atraumatic, TMs and OP unremarkable Heart: Regular rate and rhythm without murmur Lungs: Clear to auscultation bilaterally with normal effort Abdomen: Soft, nontender, nondistended, normal bowel sounds Neuropsych: Alert, oriented, no focal deficits Skin: Warm and dry without rashes (JEAN-CLAUDE LAMAR MD) ZOE IBANEZ May 13, 2022 08:25 JEAN-CLAUDE LAMAR MD May 13, 2022 11:21
[2022-05-13] MEDS ORDERED: ONDANSETRON 4 MG (ZOFRAN) ORAL DISSOLVE TAB SL ONE (08:30)
[2022-05-13] MEDS ORDERED: IBUPROFEN TABLET 200 MG TAB PO ONE (08:30)
[2022-05-13] MEDS ORDERED: LACTATED RINGERS 1,000 ML IV ONE (10:15)
[2022-05-13] MEDS ORDERED: PROMETHAZINE INJ 25 MG/ML (PHENERGAN) AMP IVP ONE (10:15)
[2022-05-13 10:30] LABS: BASOPHILS # (AUTO) 0.1 10^3/uL (0.0-0.1); BASOPHILS % (AUTO) 1 % (0-10); EOSINOPHILS # (AUTO) 0.1 10^3/uL (0.0-0.3); EOSINOPHILS % (AUTO) 1 % (0-10); HEMATOCRIT 39 % (35-52); LYMPHOCYTES # (AUTO) 1.1 10^3/uL (1.0-4.0); LYMPHOCYTES % (AUTO) 14 % (12-44); MEAN CORPUSCULAR HEMOGLOBIN 29 pg (25-34); MEAN CORPUSCULAR HGB CONC 34 g/dL (32-36); MEAN CORPUSCULAR VOLUME 85 fL (80-99); MEAN PLATELET VOLUME 9.9 fL (9.0-12.2); MONOCYTES # (AUTO) 0.5 10^3/uL (0.0-1.0); MONOCYTES % (AUTO) 6 % (0-12); NEUTROPHILS # (AUTO) 6.4 10^3/uL (1.8-7.8); NEUTROPHILS % (AUTO) 78 % (42-75); PLATELET COUNT 299 10^3/uL (130-400); WHITE BLOOD COUNT 8.1 10^3/uL (4.3-11.0)
[2022-05-13 10:40] LABS: POTASSIUM 3.4 MMOL/L (3.6-5.0)
[2022-05-13 10:41] LABS: CALCIUM 9.4 MG/DL (8.5-10.1)
[2022-05-13 10:46] LABS: CREATININE SERUM 0.79 MG/DL (0.60-1.30)
[2022-05-13 10:48] LABS: MAGNESIUM 1.7 MG/DL (1.6-2.4)
[2022-05-13] MEDS ORDERED: ONDA4TAB11 SL (11:21)
[2022-05-13] MEDS ORDERED: PROM25SU44 RC (11:21)
[2022-05-13 11:30] VITALS: BP 170/76
== END 2022-05-13 11:30 | disposition home or self-care (01) ==
LOC: EDUNIT# 07:50 → ER 07:52
DX: B34.9 Viral infection, unspecified (principal); R11.2 Nausea with vomiting, unspecified; R05.9 Cough, unspecified; R50.9 Fever, unspecified; Z28.310 Unvaccinated for COVID-19; Z20.822 Contact with and (suspected) exposure to COVID-19
CPT/HCPCS: 36415; 80048; 83735; 84703; 85025; 87636; 99283

== ENCOUNTER 2022-08-13 20:52 | Emergency (ER) | payer MEDICAID ==
[~2022-08-13] VITALS: Ht 170 cm; Wt 108.9 kg
[~2022-08-13 20:52] MED LIST changes: +ONDA4TAB11 SL; +PROM25SU44 RC
[2022-08-13 21:12] VITALS: BP 124/87
--- NOTE | 2022-08-13 21:18 | ED Upper Extremity ---
General Chief Complaint: Upper Extremity Stated Complaint: FALL/RIGHT HAND/PINKIE FINGER INJURY Source: patient Exam Limitations: no limitations History of Present Illness Date Seen by Provider: Aug 13, 2022 Time Seen by Provider: 21:15 Initial Comments Patient is a 27-year-old female who presents ED with right hand pain. She states 1 hour ago she was walking up the stairs when she missed a step landing directly on her right hand. She states her hand may have been extended or curled. She had a immediate pain to her fifth and fourth MCP joint with swelling and bruising. Difficulty making a fist secondary to the pain. Did not take anything for pain or applying ice. No history of previous injury or fracture. Denies of any wrist pain, elbow pain, head injury, back pain, vomiting. She reports some numbness and tingling into her forearm Allergies and Home Medications Allergies Coded Allergies: No Known Drug Allergies (Unverified , 01/25/22) Patient Home Medication List Home Medication List Reviewed: Yes Amoxicillin/Potassium Clav (Amox Tr-K Clv 875-125 mg Tab) 875 Mg-125 Mg Tablet, 1 EACH PO BID Prescribed by: GEORGE HENNING on 01/25/222201 Fluconazole (Diflucan) 150 Mg Tablet, 150 MG PO DAILY Prescribed by: GEORGE HENNING on 01/25/222201 Ondansetron (Ondansetron Odt) 8 Mg Tab.rapdis, 8 MG PO Q6H PRN for NAUSEA/VOMITING Prescribed by: GEORGE HENINNG on 01/25/222201 Ondansetron (Ondansetron Odt) 4 Mg Tab.rapdis, 4 MG SL Q4H PRN for NAUSEA/VOMITING Prescribed by: JEAN-CLAUDE ROSENBERG on 05/13/221120 Promethazine HCl (Promethazine Suppository) 25 Mg Supp.rect, 25 MG RC Q8H PRN for NAUSEA/VOMITING-2ND LINE Prescribed by: JEAN-CLAUDE ROSENBERG on 05/13/221120 Review of Systems Constitutional: No chills, No diaphoresis, No malaise, No weakness EENTM: No ear pain, No blurred vision Respiratory: No cough, No dyspnea on exertion Gastrointestinal: No abdominal pain, No diarrhea, No nausea, No vomiting Genitourinary: No decreased output, No discharge Musculoskeletal: No back pain; joint pain, joint swelling, muscle pain Skin: No change in color All Other Systems Reviewed Negative Unless Noted: Yes Past Ynahboe-Mreyyn-Cjrkft Hx Past Medical History Surgery/Hospitalization HX: pmh: depression Family Medical History No Pertinent Family Hx Physical Exam Vital Signs Vital Signs - First Documented 08/13/22 21:12 Temp 37.0 Pulse 88 Resp 18 B/P (MAP) 124/87 (99) Capillary Refill : Height, Weight, BMI Height: '" Weight: lbs. oz. kg; 37.00 BMI Method: General Appearance: WD/WN, no apparent distress HEENT: PERRL/EOMI, normal ENT inspection, TMs normal, pharynx normal Neck: non-tender, full range of motion, supple Cardiovascular: regular rate, rhythm, no edema, no gallop, no JVD Respiratory: chest non-tender, lungs clear, normal breath sounds, no respiratory distress Gastrointestinal: normal bowel sounds, non tender, soft Shoulder: normal inspection, non-tender, no evidence of injury Elbow/Forearm: normal inspection, non-tender, no evidence of injury, normal ROM, Right Wrist: Yes normal inspection, Yes non-tender, Yes no evidence of injury, Yes normal ROM Hand: Right, bone tenderness (Right fifth MCP joint, metacarpal), swelling (Soft tissue overlying the right lateral dorsum hand) Neurologic/Psychiatric: reporting manager II-XII nml as tested, no motor/sensory deficits, alert, normal mood/affect, oriented x 3 Skin: warm/dry Progress/Results/Core Measures Results/Orders My Orders Orders - DUSTY ARNDT Hand, Right, 3 Views (08/13/22 21:14) Ibuprofen Tablet (Motrin Tablet) (08/13/22 21:30) Medications Given in ED Current Medications Medications Dose Ordered Sig/Gail Route Start Time Stop Time Status Last Admin Dose Admin Ibuprofen 600 mg ONCE ONCE PO 08/13/22 21:30 08/13/22 21:31 DC 08/13/22 21:29 600 MG Vital Signs/I&O 08/13/22 21:12 Temp 37.0 Pulse 88 Resp 18 B/P (MAP) 124/87 (99) Departure Communication (PCP) Complaining of right hand pain. Difficulty making a fist. No wrist tenderness. I reviewed x-ray of the right wrist which did not show any acute fracture. Read by the radiologist was unremarkable. She was given 600 mg ibuprofen. Ice was applied. Suspect hand contusion secondary to fall. Wes wrap was provided. Discussed with patient if pain continues over the next 1 to 2 weeks would recommend recheck with x-ray. Recommend immobilization as needed. Provided stretching exercises. Continue with anti-inflammatories for pain. She agrees with plan of action. Impression Primary Impression: Contusion of hand Disposition: HOME, SELF-CARE Condition: Stable Departure-Patient Inst. Decision time for Depature: 21:38 Referrals: [facility] (PCP) Primary Care Physician KIM FRANCE APRN (Family) Primary Care Physician MILLY ONOFRE MD Patient Instructions: Hand Pain (DC) Add. Discharge Instructions: Recommend ice, anti-inflammatories to help with pain. Wes wrap for support. If continue having pain over the next 7 to 10 days recommend recheck with x-ray All discharge instructions reviewed with patient and/or family. Voiced understanding. DUSTY ARNDT Aug 13, 2022 21:17
[2022-08-13] MEDS ORDERED: IBUPROFEN 600 MG (MOTRIN) TAB PO ONE (21:30)
--- NOTE | 2022-08-13 21:54 | Diagnostic Imaging Report ---
EXAMINATION: Right hand 3 views. HISTORY: Hand injury. COMPARISON: None available. FINDINGS: Alignment is normal. No fracture is seen. Joint spaces are normal. IMPRESSION: No fracture. Dictated by: Dictated on workstation # [id number]
== END 2022-08-13 21:45 | disposition home or self-care (01) ==
LOC: EDUNIT# 20:52 → ER 20:54
DX: S60.221A Contusion of right hand, initial encounter (principal); Z28.310 Unvaccinated for COVID-19; W10.9XXA Fall (on) (from) unspecified stairs and steps, initial encounter; Y93.01 Activity, walking, marching and hiking
CPT/HCPCS: 73130

== ENCOUNTER 2022-08-19 20:59 | Emergency (ER) | payer MEDICAID ==
[~2022-08-19] VITALS: Ht 170.2 cm; Wt 108.9 kg
[2022-08-19] MEDS ORDERED: LORazepam 0.5 MG (ATIVAN) TABLET PO ONE ×2 (21:15→21:45)
--- NOTE | 2022-08-19 21:19 | ED General ---
General Stated Complaint: PANIC ATTACK Source of Information: Patient Exam Limitations: No Limitations History of Present Illness Date Seen by Provider: Aug 19, 2022 Time Seen by Provider: 21:16 Initial Comments Patient is a 27-year-old female who presents ED with chest pain, shortness of breath, upper extremity and lower extremity heaviness. Symptoms started about 1 hour ago. She was sitting at home watching TV when all of a sudden she started having chest tightness with shortness of breath. She reports shallow breathing difficulty catching her breath. She started breathing heavier and noted her legs and arms that started to feel heavy. She had associated dizziness. History of panic attacks but states this feels very different. She was on Lamictal and Prozac 2 months ago but stopped taking the medication and and has not following up with her primary care physician regarding her medication. She denies of any suicidal homicidal thoughts. Denies cough, visual changes, unilateral muscle weakness or sensory changes, vomiting, diarrhea, concern for , history of heart disease, asthma, smokin. Allergies and Home Medications Allergies Coded Allergies: No Known Drug Allergies (Unverified , 01/25/22) Patient Home Medication List Home Medication List Reviewed: Yes Amoxicillin/Potassium Clav (Amox Tr-K Clv 875-125 mg Tab) 875 Mg-125 Mg Tablet, 1 EACH PO BID Prescribed by: GEORGE HENNING on 01/25/222201 Fluconazole (Diflucan) 150 Mg Tablet, 150 MG PO DAILY Prescribed by: GEORGE HENNING on 01/25/222201 Ondansetron (Ondansetron Odt) 8 Mg Tab.rapdis, 8 MG PO Q6H PRN for NAUSEA/VOMITING Prescribed by: GEORGE HENNING on 01/25/222201 Ondansetron (Ondansetron Odt) 4 Mg Tab.rapdis, 4 MG SL Q4H PRN for NAUSEA/VOMITING Prescribed by: JEAN-CLAUDE ROSENBERG on 05/13/221120 Promethazine HCl (Promethazine Suppository) 25 Mg Supp.rect, 25 MG RC Q8H PRN for NAUSEA/VOMITING-2ND LINE Prescribed by: JEAN-CLAUDE ROSENBERG on 05/13/221120 Review of Systems Review of Systems Constitutional: No chills, No diaphoresis EENTM: No ear pain, No blurred vision, No double vision, No vision loss, No mouth pain, No throat pain, No throat swelling Respiratory: short of breath Cardiovascular: chest pain Gastrointestinal: No abdominal pain, No diarrhea, No nausea, No vomiting Genitourinary: No decreased output, No discharge Musculoskeletal: No back pain, No joint pain Skin: No change in color Psychiatric/Neurological: Anxiety, Other (dizziness) All Other Systems Reviewed Negative Unless Noted: Yes Past Vcmavqg-Swaoty-Qgfwae Hx Past Medical History Surgery/Hospitalization HX: pmh: depression Family Medical History No Pertinent Family Hx Physical Exam Vital Signs Vital Signs - First Documented 08/19/22 21:06 Temp 36.1 Pulse 87 Resp 20 B/P (MAP) 137/102 (114) Pulse Ox 98 O2 Delivery Room Air Capillary Refill : Height, Weight, BMI Height: '" Weight: lbs. oz. kg; 37.00 BMI Method: General Appearance: No Apparent Distress, WD/WN Eyes: Bilateral Eye Normal Inspection, Bilateral Eye PERRL, Bilateral Eye EOMI HEENT: PERRL/EOMI, TMs Normal, Normal ENT Inspection, Pharynx Normal Neck: Full Range of Motion, Normal Inspection, Non Tender, Supple Respiratory: Chest Non Tender, Lungs Clear, Normal Breath Sounds, No Accessory Muscle Use, No Respiratory Distress Cardiovascular: Regular Rate, Rhythm, No Edema, No Gallop, No JVD Gastrointestinal: Normal Bowel Sounds, No Organomegaly, No Pulsatile Mass, Non Tender Back: Normal Inspection, No CVA Tenderness Extremity: Normal Capillary Refill, Normal Inspection, Normal Range of Motion, Non Tender Neurologic/Psychiatric: Alert, Oriented x3, No Motor/Sensory Deficits, Normal Mood/Affect, consumer experience consultant II-XII Norm as Tested Skin: Normal Color, Warm/Dry Progress/Results/Core Measures Suspected Sepsis SIRS Temperature: Pulse: Respiratory Rate: Blood Pressure / Mean: Results/Orders My Orders Orders - DUSTY ARNDT PA Ekg Tracing (08/19/22 21:15) Chest 1 View, Ap/Pa Only (08/19/22 21:15) Lorazepam Tablet (Ativan Tablet) (08/19/22 21:15) Lorazepam Tablet (Ativan Tablet) (08/19/22 21:45) Medications Given in ED Current Medications Medications Dose Ordered Sig/Gail Route Start Time Stop Time Status Last Admin Dose Admin Lorazepam 0.5 mg ONCE ONCE PO 08/19/22 21:15 08/19/22 21:16 DC 08/19/22 21:37 0.5 MG Lorazepam 0.5 mg ONCE ONCE PO 08/19/22 21:45 08/19/22 21:46 DC 08/19/22 21:37 0.5 MG Vital Signs/I&O 08/19/22 08/19/22 21:06 22:29 Temp 36.1 Pulse 87 74 Resp 20 20 B/P (MAP) 137/102 (114) 115/77 Pulse Ox 98 99 O2 Delivery Room Air Room Air Capillary Refill : ECG Comment Sinus rhythm, 73 bpm, QRS duration 94 MS, QTc 402 MS. Departure Communication (PCP) Patient presents to ED for chest tightness, shortness of breath. Patient was laying down this evening when his symptoms started. Reviewed previous ER visits, H&P's, testing. History of anxiety not currently taking her Prozac or Lamictal. Patient has no suicidal homicidal thoughts. No drug use or substance abuse. Patient denies history of hypertension, diabetes, high cholesterol or smoking. Family cardiac history. Heart score 1. Wells criteria-low risk, perc low risk. differential diagnosis panic attack, arrhythmia, reactive airway disease, heart disease. EKG showed normal sinus rhythm without evidence of ST elevation or depression, WPW, Brugada syndrome, SVT. Chest x-ray was otherwise negative for pneumonia, pneumothorax, mediastinal widening. Patient Was given a dose of Ativan 1mg concerning for panic attack which resolved her symptoms. Due to her low heart score with low cardiac risk factors patient can be safely discharged. Discussed ways of managing a another a panic attack at home. She has a follow-up visit [facility]. Patient states she feels much better at this time and will return if any symptoms worsen. Return precaution were discussed with patient. Impression Primary Impression: Anxiousness Disposition: 01 HOME, SELF-CARE Condition: Stable Departure-Patient Inst. Decision time for Depature: 22:23 Referrals: [facility] (PCP) Primary Care Physician KIM FRANCE APRN (Family) Primary Care Physician Patient Instructions: Anxiety, Adult (DC) Add. Discharge Instructions: Recommend following up with your primary care physician for further evaluation. If any worsening symptoms return back to ED. DUSTY ARNDT Aug 19, 2022 21:18
--- NOTE | 2022-08-19 21:49 | Diagnostic Imaging Report ---
CHEST 1 VIEW, AP/PA ONLY Indication: Chest pain. Comparison: 03/02/2022 Findings: No focal airspace disease in the visualized lungs. No pleural effusion or pneumothorax. Normal cardiomediastinal silhouette. Impression: 1. No acute cardiopulmonary process by portable radiography. Dictated by: Dictated on workstation # [id number]
[2022-08-19 22:29] VITALS: BP 115/77
== END 2022-08-19 22:30 | disposition home or self-care (01) ==
LOC: EDUNIT# 20:59 → ER 21:01
DX: F41.9 Anxiety disorder, unspecified (principal); Z28.310 Unvaccinated for COVID-19
CPT/HCPCS: 71045; 93005

== ENCOUNTER 2022-10-21 21:53 | Emergency (ER) | payer MEDICAID ==
[~2022-10-21] VITALS: Ht 170 cm; Wt 108.9 kg
[2022-10-21] MEDS ORDERED: LAMO25TA75 PO (22:13)
--- NOTE | 2022-10-21 22:59 | ED Upper Extremity ---
General Chief Complaint: Upper Extremity Stated Complaint: PINKY FINGER PAIN|HAND PAIN Nursing Triage Note: c/o right 5th finger/ lateral hand pain x2 hrs after hitting a wall accidentally. Source: patient History of Present Illness Date Seen by Provider: October 21, 2022 Time Seen by Provider: 22:55 Initial Comments PT ARRIVES VIA POV FROM HOME PT STATES ABOUT 3 HOURS AGO, SHE WAS WRESTLING WITH HER ROOM MATE AND ACCIDENTALLY HIT HER RIGHT HAND AND PINKY FINGER ON A WALL NO PARESTHESIAS OR MOTOR DEFICITS HAS NOT TAKEN ANYTHING FOR PAIN NO PRIOR FRACTURES OR PROBLEMS WITH THIS HAND PT IS RIGHT HANDED. PCP: TRINIDAD, KAYLEY FRANCE Allergies and Home Medications Allergies Coded Allergies: No Known Drug Allergies (Unverified , 01/25/22) Patient Home Medication List Home Medication List Reviewed: Yes Lamotrigine (Lamictal) 25 Mg Tablet, Unknown Dose PO, (Reported) Entered as Reported by: SAMPSON BOOGIE on 10/21/222212 Last Action: New Order Discontinued Medications Amoxicillin/Potassium Clav (Amox Tr-K Clv 875-125 mg Tab) 875 Mg-125 Mg Tablet, 1 EACH PO BID Discontinued Reason: No Longer Taking Prescribed by: GEORGE HENNING on 01/25/222201 Last Action: Discontinued Fluconazole (Diflucan) 150 Mg Tablet, 150 MG PO DAILY Discontinued Reason: No Longer Taking Prescribed by: GEORGE HENNING on 01/25/222201 Last Action: Discontinued Ondansetron (Ondansetron Odt) 8 Mg Tab.rapdis, 8 MG PO Q6H PRN for NAUSEA/VOMITING Discontinued Reason: No Longer Taking Prescribed by: GEORGE HENNING on 01/25/222201 Last Action: Discontinued Ondansetron (Ondansetron Odt) 4 Mg Tab.rapdis, 4 MG SL Q4H PRN for NAUSEA/ VOMITING Discontinued Reason: No Longer Taking Prescribed by: JEAN-CLAUDE ROSENBERG on 05/13/221120 Last Action: Discontinued Promethazine HCl (Promethazine Suppository) 25 Mg Supp.rect, 25 MG RC Q8H PRN for NAUSEA/VOMITING-2ND LINE Discontinued Reason: No Longer Taking Prescribed by: JEAN-CLAUDE ROSENBERG on 05/13/221120 Last Action: Discontinued Review of Systems Constitutional: no symptoms reported : No LMP: October 17, 2022 Control/STD Prophylaxis: None Musculoskeletal: see HPI Skin: no symptoms reported Psychiatric/Neurological: No Symptoms Reported Past Qdmysib-Ktipys-Oegkkh Hx Patient Social History Tobacco Use?: No Substance use?: No Alcohol Use?: No Pt feels they are or have been: No Immunizations Up To Date First/Initial COVID19 Vaccinat: na Second COVID19 Vaccination Josr: NONE Third COVID19 Vaccination Date: NONE Past Medical History Surgery/Hospitalization HX: pmh: depression Surgeries: No Respiratory: No Cardiac: No Neurological: No Last Menstrual Period: October 17, 2022 Reproductive Disorders: No Genitourinary: No Gastrointestinal: No Musculoskeletal: No Endocrine: No HEENT: No Cancer: No Psychosocial: Yes Depression Integumentary: No Blood Disorders: No Family Medical History No Pertinent Family Hx Physical Exam Vital Signs Vital Signs - First Documented 10/21/22 22:10 Temp 36.3 Pulse 72 Resp 16 B/P (MAP) 135/86 (102) Pulse Ox 98 O2 Delivery Room Air Capillary Refill : Less Than 3 Seconds Height, Weight, BMI Height: '" Weight: lbs. oz. kg; 37.00 BMI Method: General Appearance: WD/WN, no apparent distress Elbow/Forearm: normal inspection Wrist: Yes normal inspection Hand: Right (TENDERNESS OVER RIGHT 5TH FINGER AND METACARPAL AREA. NO EXTERNAL EVIDENCE OF TRAUMA. MOTOR/SENSORY/VASCULAR INTACT. ) Progress/Results/Core Measures Results/Orders My Orders Orders - YARITZA GUDINO DO Hand, Right, 3 Views (10/21/22 22:56) Vital Signs/I&O 10/21/22 22:10 Temp 36.3 Pulse 72 Resp 16 B/P (MAP) 135/86 (102) Pulse Ox 98 O2 Delivery Room Air Blood Pressure Mean: 102 Progress Progress Note : Progress Note DISCUSSED XRAYS, SYMPTOMATIC TREATMENT, MEDICATIONS, NEED FOR FOLLOW UP AND RETURN PRECAUTIONS Diagnostic Imaging Comments XRAYS RIGHT HAND-PENDING RADIOLOGIST REVIEW -NO FRACTURE OR DISLOCATION Reviewed: Reviewed by Me Departure Impression Primary Impression: Contusion of right hand Disposition: HOME, SELF-CARE Condition: Stable Departure-Patient Inst. Decision time for Depature: 23:16 Referrals: KIM FRANCE APRN (PCP) Primary Care Physician Patient Instructions: Contusion (DC) Add. Discharge Instructions: TYLENOL AND MOTRIN NEEDED FOR PAIN ICE TO AREA AT 20 MINUTE INTERVALS FOLLOW UP WITH [facility] IN 1 WEEK IF NO BETTER All discharge instructions reviewed with patient and/or family. Voiced understan nerissa. YAIRTZA GUDINO DO October 21, 2022 22:58
[2022-10-21 23:18] VITALS: BP 132/79
--- NOTE | 2022-10-22 06:45 | Diagnostic Imaging Report ---
INDICATION: Right 5th finger injury 3 views of the right hand show no fracture, dislocation or other acute abnormalities. IMPRESSION: Negative right hand Dictated by: Dictated on workstation # [id number]
== END 2022-10-21 23:20 | disposition home or self-care (01) ==
LOC: EDUNIT# 21:53 → ER 21:54
DX: S60.221A Contusion of right hand, initial encounter (principal); Z28.310 Unvaccinated for COVID-19; W22.09XA Striking against other stationary object, initial encounter; Y93.72 Activity, wrestling
CPT/HCPCS: 73130

== ENCOUNTER 2022-11-05 01:18 | Emergency (ER) | payer MEDICAID ==
[~2022-11-05 01:18] MED LIST changes: +LAMO25TA75 PO
[2022-11-05] MEDS ORDERED: ONDANSETRON 4 MG (ZOFRAN) ORAL DISSOLVE TAB PO STA (02:00)
--- NOTE | 2022-11-05 02:04 | ED GI ---
General Chief Complaint: Abdominal/GI Problems Stated Complaint: VOMITING Nursing Triage Note: TO ED VIA POV AND AMBULATORY TO ROOM 6 WITH C/O VOMITING SINCE 1630 THIS AFTERNOON, UNKNOWN AMOUNT OF TIMES. STATES NOW SHE IS "DIZZY" WITH MOVEMENT. INTERMITTENT NAUSEA AND DIARRHEA EARLIER. Source of Information: Patient History of Present Illness Date Seen by Provider: Nov 05, 2022 Time Seen by Provider: 01:50 Initial Comments PT ARRIVES VIA POV FROM HOME STATES SHE BEGAN GETTING SICK AROUND 1630 THIS AFTERNOON C/O NAUSEA AND VOMITING. STATES SHE HAS VOMITED "OVER 40 TIMES" SHE HAD DIARRHEA 4-5 TIMES NO ABDOMINAL PAIN OR CRAMPING NO FEVER NO URINARY SYMPTOMS AND VOIDING A NORMAL AMOUNT--LAST VOID 2330 AND AGAIN ON ARRIVAL HERE. NO NEW MEDICATIONS NO SICK CONTACTS OR SUSPICIOUS FOODS NO HISTORY OF GI PROBLEMS OR ABDOMINAL SURGERIES. LMP 1 WEEK AGO, NORMAL. NO CONTROL Allergies and Home Medications Allergies Coded Allergies: No Known Drug Allergies (Unverified , 01/25/22) Patient Home Medication List Home Medication List Reviewed: Yes Lamotrigine (Lamictal) 25 Mg Tablet, Unknown Dose PO, (Reported) Entered as Reported by: SAMPSON BOOGIE on 10/21/222212 Ondansetron (Ondansetron Odt) 8 Mg Tab.rapdis, 8 MG PO Q4H PRN for NAUSEA/VOMITING Prescribed by: YARITZA GUDINO on 11/05/22 0317 Review of Systems Review of Systems Constitutional: no symptoms reported Respiratory: No Symptoms Reported Cardiovascular: No Symptoms Reported Gastrointestinal: See HPI; Denies Abdominal Pain, Denies Constipated; Diarrhea, Nausea, Vomiting Genitourinary: No Symptoms Reported Musculoskeletal: no symptoms reported Skin: no symptoms reported Psychiatric/Neurological: No Symptoms Reported Endocrine: No Symptoms Reported Hematologic/Lymphatic: No Symptoms Reported Past Uvztkdb-Yjxpij-Elfzxi Hx Patient Social History Tobacco Use?: No Substance use?: No Alcohol Use?: No Immunizations Up To Date First/Initial COVID19 Vaccinat: na Second COVID19 Vaccination Josr: NONE Third COVID19 Vaccination Date: NONE Past Medical History Surgery/Hospitalization HX: pmh: depression Surgeries: No Respiratory: No Cardiac: No Neurological: No Reproductive Disorders: No Genitourinary: No Gastrointestinal: No Musculoskeletal: No Endocrine: No HEENT: No Cancer: No Psychosocial: Yes Depression Integumentary: No Blood Disorders: No Family Medical History No Pertinent Family Hx Physical Exam Vital Signs Vital Signs - First Documented 11/05/22 01:30 Temp 37.3 Pulse 93 Resp 16 B/P (MAP) 133/75 (94) Pulse Ox 98 O2 Delivery Room Air Capillary Refill : Less Than 3 Seconds Height/Weight/BMI Height: '" Weight: lbs. oz. kg; 37.00 BMI Method: General Appearance: WD/WN, no apparent distress, other (DOES NOT APPEAR ILL OR TO BE IN ANY DISCOMFORT OR DISTRESS) HEENT: PERRL/EOMI, normal ENT inspection, TMs normal, pharynx normal, other (ORAL MUCOSA MOIST) Neck: normal inspection Respiratory: normal breath sounds, no respiratory distress, no accessory muscle use Cardiovascular: regular rate, rhythm, no murmur Gastrointestinal: normal bowel sounds, non tender, soft, no organomegaly Extremities: normal inspection, normal capillary refill Back: no CVA tenderness Neurologic/Psychiatric: indigo vat tender cloth II-XII nml as tested, no motor/sensory deficits, alert, normal mood/affect, oriented x 3 Skin: normal color, warm/dry Progress/Results/Core Measures Results/Orders Lab Results Laboratory Tests Test 11/05/22 02:00 Range/Units Urine Color DARK YELLOW Urine Clarity SL CLOUDY Urine pH 6.0 5-9 Urine Specific [place] >=1.030 1.016-1.022 Urine Protein TRACE H NEGATIVE Urine Glucose (UA) NEGATIVE NEGATIVE Urine Ketones 3+ H NEGATIVE Urine Nitrite NEGATIVE NEGATIVE Urine Bilirubin 2+ H NEGATIVE Urine Urobilinogen 0.2 < = 1.0 MG/DL Urine Leukocyte Esterase NEGATIVE NEGATIVE Urine RBC (Auto) NEGATIVE NEGATIVE Urine RBC NONE /HPF Urine WBC 0-2 /HPF Urine Squamous Epithelial Cells 5-10 /HPF Urine Crystals NONE /LPF Urine Bacteria FEW H /HPF Urine Casts NONE /LPF Urine Mucus LARGE H /LPF Urine Culture Indicated NO Urine Test NEGATIVE NEGATIVE Urine Opiates Screen NEGATIVE NEGATIVE Urine Oxycodone Screen NEGATIVE NEGATIVE Urine Methadone Screen NEGATIVE NEGATIVE Urine Propoxyphene Screen NEGATIVE NEGATIVE Urine Barbiturates Screen NEGATIVE NEGATIVE Ur Tricyclic Antidepressants Screen NEGATIVE NEGATIVE Urine Phencyclidine Screen NEGATIVE NEGATIVE Urine Amphetamines Screen NEGATIVE NEGATIVE Urine Methamphetamines Screen NEGATIVE NEGATIVE Urine Benzodiazepines Screen NEGATIVE NEGATIVE Urine Cocaine Screen NEGATIVE NEGATIVE Urine Cannabinoids Screen NEGATIVE NEGATIVE My Orders Orders - YARITZA GUDINO DO Drug Screen Stat (Urine) (11/05/22 02:00) Hcg,Qualitative Urine (11/05/22 02:00) Ua Culture If Indicated (11/05/22 02:00) Ondansetron Oral Dissolve Tab (Zofran (11/05/22 02:00) Urine Bedside (11/05/22 02:04) Urine Bedside (11/05/22 02:04) Orthostatic Vital Signs (Adult (11/05/22 02:25) Ondansetron Oral Dissolve Tab (Zofran (11/05/22 02:45) Medications Given in ED Current Medications Medications Dose Ordered Sig/Gail Route Start Time Stop Time Status Last Admin Dose Admin Ondansetron HCl 4 mg ONCE ONCE PO 11/05/22 02:45 11/05/22 02:46 DC 11/05/22 02:50 4 MG Vital Signs/I&O 11/05/22 11/05/22 01:30 02:31 Temp 37.3 Pulse 93 91 85 84 Resp 16 B/P (MAP) 133/75 (94) 126/76 (93) 122/72 (89) 116/69 (85) Pulse Ox 98 O2 Delivery Room Air Blood Pressure Mean: 94 Progress Progress Note : Progress Note VITALS NORMAL BP 120'S-130'S/80'S, HR IN 80'S. ORTHOSTATIC VITALS NORMAL NO VOMITING AT ANY TIME DURING ER STAY NO DIARRHEA NO ABDOMINAL PAIN OR PAIN ANYWHERE GIVEN ZOFRAN PT TOLERATING ICE CHIPS PRIOR TO DISMISSAL STATES SHE FEELS MUCH BETTER, AND NAUSEA IS GONE PRIOR TO DISMISSAL DISCUSSED TEST RESULTS, ANTICIPATED COURSE, SYMPTOMATIC TREATMENT, DIET, MEDICATIONS, NEED FOR FOLLOW UP AND RETURN PRECAUTIONS REVIEWED PRIOR RECORDS--ALL ER VISITS--8 VISITS SINCE HER FIRST VISIT HERE ON 01/25/2022--VARIOUS COMPLAINTS. Departure Impression Primary Impression: Nausea and vomiting Disposition: 01 HOME, SELF-CARE Condition: Improved Departure-Patient Inst. Decision time for Depature: 03:15 Referrals: KIM FRANCE APRN (PCP/Family) Primary Care Physician Patient Instructions: Nausea and Vomiting, Adult ED Add. Discharge Instructions: CLEAR LIQUIDS--WATER. BROTH, JELLO, GATORADE BRATS DIET--BANANAS, RICE, APPLESAUCE, TOAST, SALTINES FOLLOW UP WITH [facility] IN 1-2 DAYS IF NO BETTER, RETURN TO ER IF WORSE All discharge instructions reviewed with patient and/or family. Voiced u nderstanding. Scripts Ondansetron (Ondansetron Odt) 8 Mg Tab.rapdis 8 MG PO Q4H PRN for NAUSEA/VOMITING, #10 TAB Prov: YARITZA GUDINO DO 11/05/22 YARITZA GUDINO DO Nov 05, 2022 02:04
[2022-11-05 02:07] LABS: BILIRUBIN,URINE 2+ (NEGATIVE); CLARITY,URINE SL CLOUDY; COLOR,URINE DARK YELLOW; GLUCOSE, URINE (UA) NEGATIVE (NEGATIVE); KETONES,URINE 3+ (NEGATIVE); LEUKOCYTE ESTERASE ,URINE NEGATIVE (NEGATIVE); NITRITE,URINE NEGATIVE (NEGATIVE); PROTEIN,URINE TRACE (NEGATIVE)
[2022-11-05 02:25] LABS: HCG,QUALITATIVE URINE NEGATIVE (NEGATIVE)
[2022-11-05 02:29] LABS: BACTERIA,URINE FEW /HPF; WBC,URINE 0-2 /HPF
[2022-11-05 02:31] VITALS: BP_SYST 116; BP_SYST 122; BP_SYST 126; BP_DIAS 69; BP_DIAS 72; BP_DIAS 76
[2022-11-05 02:36] LABS: AMPHETAMINE SCREEN, URINE NEGATIVE (NEGATIVE); BARBITURATE SCREEN URINE NEGATIVE (NEGATIVE); BENZODIAZEPINES SCREEN URINE NEGATIVE (NEGATIVE); CANNABINOID SCREEN, URINE NEGATIVE (NEGATIVE); COCAINE SCREEN URINE NEGATIVE (NEGATIVE); METHADONE STAT NEGATIVE (NEGATIVE); OPIATE SCREEN URINE NEGATIVE (NEGATIVE); OXYCODONE STAT NEGATIVE (NEGATIVE); PROPOXYPHENE STAT NEGATIVE (NEGATIVE); TRICYCLIC ANTIDEPRESSANTS SCRE NEGATIVE (NEGATIVE)
[2022-11-05] MEDS ORDERED: ONDANSETRON 4 MG (ZOFRAN) ORAL DISSOLVE TAB PO ONE (02:45)
[2022-11-05] MEDS ORDERED: RX-ONDANSETRON 4 MG ODT (ZOFRAN) PPK #4 PO STA (03:17)
[2022-11-05] MEDS ORDERED: ONDA8TAB13 PO (03:17)
[2022-11-05 03:30] VITALS: BP 113/76
== END 2022-11-05 03:33 | disposition home or self-care (01) ==
LOC: EDUNIT# 01:18 → ER 01:21
DX: R11.2 Nausea with vomiting, unspecified (principal); Z28.310 Unvaccinated for COVID-19
CPT/HCPCS: 80306; 81000; 84703; 99283